=== PATIENT | male | born 2000 | race Caucasian/White ===

== ENCOUNTER 2025-04-17 15:02 | Emergency (ER) | payer MEDICAID, SELFPAY ==
[2025-04-17 15:04] VITALS: BP 159/83; PULSE 84; RESP 18; TEMP 36.8; O2SAT 99; BMI 26.2
--- NOTE | 2025-04-17 15:15 | EDS_ITS ---
HPI HPI - Psych History of Present Illness Chief Complaint: Suicidal Informant: patient Onset/Context/Timing Onset: Yesterday Context: Gradual Onset Timing: Continuous Worsened by: Situational factors Relieved by: Nothing Associated Symptoms Associated Symptoms - Psych: Positive for Depressed, Change in Eating, Change in sleeping, Decreased Interest, Hopelessness and Suicidal Thoughts; Negative for Paranoia, Visual Hallucinations or Auditory Hallucinations Specific plan (suicidal thought): Shooting self with a gun Narrative Narrative: Patient presents with depression and suicidal ideation that has been getting wor se since yesterday. Patient states it has gradually gotten worse. Patient states he got into an argument yesterday. Patient states he has had thoughts of shooting himself with a gun. Does not patient admits to some decreased interest. Patient admits to changes in eating and sleeping habits. Patient denies any visual auditory hallucinations. Patient denies any paranoid ideations. Patient currently does not see a psychiatrist or counselor. PFSH PFSH Medical History no medical history no medical history Home Medications ?Medication ?Instructions ?Recorded ?Last Taken ?Type No Known/Unobtainable [No Known 7 Unknown History Home Medications] Allergy/AdvReac Type Severity Reaction Status Date / Time No Known Allergies Allergy Verified 04/17/25 15:10 Family History no significant family his Surgical History no surgical history no surgical history Social History Smoking Status: Never smoker ROS ROS ED Constitutional Constitutional ED: Denies chills or fever(s) Eyes Eyes: Denies blurry vision or change in vision ENT ENT ED: Denies rhinorrhea or sore throat Cardiovascular Cardiovascular: Denies chest pain or palpitations Respiratory/Chest Respiratory/Chest: Denies cough or dyspnea Gastrointestinal Gastrointestinal: Denies nausea or vomiting Genitourinary Genitourinary ED: Denies dysuria or hematuria Musculoskeletal Musculoskeletal: Reports back pain; Denies neck pain Integumentary Denies abscess or rash Neurologic Neurologic: Denies headache(s) or weakness Psychiatric Psychiatric: Reports depression, suicidal ideation and suicidal thoughts Allergic/Immunologic Allergic/Immunologic ED: Denies mouth swelling or urticaria EXAM Physical Exam Const Vital Signs: 04/17/25 15:04 04/17/25 16:03 04/17/25 16:33 Temperature 98.2 F 98.3 F Temperature Source Temporal Oral Pulse Rate 84 72 72 Respiratory Rate 18 16 16 Blood Pressure 159/83 H 140/75 H Blood Pressure Mean 108 96 Pulse Ox 99 97 97 Oxygen Delivery Method Room Air Room Air Room Air Positive well nourished and well developed General Appearance ED: well developed and NAD HEENT Reports moist mucous membranes Neck supple and no JVD Resp normal respiratory effort and clear to auscultation bilaterally Cardio Rate: regular rate Rhythm: regular rhythm GI non-tender and non-distended Palpation: soft Neuro oriented x3, CN's II-XII intact bilaterally and no sensory deficits noted Amari Coma Scale: document GCS findings Spontaneous Obeys Commands Oriented 15 Sensorium / Orientation: alert Motor Exam: strength 5/5 throughout Psych cooperative Appearance: well kempt Attitude: calm and withdrawn Activity / Motor Behavior: avoids eye contact Speech: minimal and soft Mood & Affect: depressed and flat affect Thought Content: suicidality, No homicidality, No delusion(s) and No hallucination(s) MDM MDM MDM Narrative Medical decision making narrative: Medical screening labs will be obtained. CBC will be obtained to assess for leukocytosis and anemia. Basic metabolic profile will be obtained to assess for electrolyte abnormality and renal function. Serum alcohol level will be obtained to assess for alcohol intoxication. Urine drug screen will be obtained to assess for substance abuse. Lab Data Attestation: I reviewed the patient's lab results. Lab results narrative: CBC was reviewed. Hemoglobin was slightly elevated at 18.2. The remainder is within normal limits. Basic metabolic profile was reviewed and was within normal limits. Serum alcohol level was reviewed and was less than 10.1. Urine drug screen was reviewed and was negative. Labs: Laboratory Results - last 24 hr 04/17/25 04/17/25 15:21 17:15 WBC 10.8 RBC 5.44 Hgb 18.2 H* Hct 52.7 MCV 96.9 H MCH 33.5 H MCHC 34.5 RDW Std Deviation 44.1 H RDW Coeff of Nisreen 12.4 Plt Count 358 MPV 8.5 Immature Gran % (Auto) 0.400 Neut % (Auto) 74.9 H Lymph % (Auto) 16.2 L [place] % (Auto) 8.0 Eos % (Auto) 0.2 Baso % (Auto) 0.3 Absolute Neuts (auto) 8.1 H Absolute Lymphs (auto) 1.75 Nucleated RBC % 0 Sodium 137 Potassium 4.1 Chloride 101 Carbon Dioxide 22.5 Anion Gap 14 BUN 14 Creatinine 1.03 Estim Creat Clear Calc 129.89 Est GFR (MDRD) Non-Af 103 BUN/Creatinine Ratio 13.6 Glucose 91 Calcium 10.0 Urine Opiates Screen NEGATIVE U Buprenorphine Qual NEGATIVE Ur Oxycodone Screen NEGATIVE Urine Methadone Screen NEGATIVE Urine Fentanyl Screen NEGATIVE Ur Barbiturates Screen NEGATIVE Ur Phencyclidine Scrn NEGATIVE Ur Amphetamines Screen NEGATIVE U Benzodiazepines Scrn NEGATIVE Urine Cocaine Screen NEGATIVE U Cannabinoids Screen NEGATIVE Ethyl Alcohol < 10.1 Management 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 Patient is medically cleared for psychiatric placement. Patient was seen by social work faculty member. Patient is uninsured and will need to be referred to [facility]. Patient will be observed in the emergency department until he can be transferred there. [place] slip and transfer form were placed on the chart. Care of the patient will be turned over to the oncoming physician pending transfer. Discharge Plan Triage Chief Complaint: Suicidal ED Provider: Damien Edgar Dx/Rx/DC Orders Clinical Impression: Suicidal ideation, Depression, Elevated blood pressure reading without diagnosis of hypertension Prescriptions: No Action No Known Home Medications Primary Care Provider: Care Physician,No Primary Referrals: Care Physician,No Primary [Primary Care Provider, Medical] Print Language: Omani Disposition Disposition: Psychiatric Hospital or Unit Discharge Location: [facility]
[2025-04-17 15:35] LABS: Hematocrit 52.7 % (40-54); Immature Granulocytes Count 0.040 X10^3/uL (0.0-0.0); Mean Corp Hgb Conc 34.5 g/dL (32-36); Mean Corpuscular Volume 96.9 fL (80-94); Mean Platelet Vol. 8.5 fl (6.2-12.0); NRBC Flagged by Analyzer 0 % (0-5); Platelet Count 358 K/mm3 (150-450); RBC Distribution Width CV 12.4 % (11.6-14.6); RBC Distribution Width SD 44.1 fl (35.1-43.9); Red Blood Count 5.44 M/mm3 (4.6-6.2); White Blood Count 10.8 K/mm3 (4.4-11.0)
[2025-04-17 15:39] LABS: Hemoglobin 18.2 g/dL (13.0-16.5)
[2025-04-17 16:03] VITALS: PULSE 72; RESP 16; O2SAT 97
[2025-04-17 16:18] LABS: Anion Gap 14 (5-15); BUN 14 mg/dL (4-19); BUN/Creat Ratio 13.6 RATIO (10-20); Calcium,Total 10.0 mg/dL (7.6-11.0); Carbon Dioxide 22.5 mmol/L (21.0-32.0); Chloride 101 mmol/L (98-108); Estimated Creatinine Clearance 129.89 ml/min (50-250); Glucose 91 mg/dL (70-99); Potassium 4.1 mmol/L (3.3-5.1)
[2025-04-17 16:33] VITALS: BP 140/75; PULSE 72; RESP 16; TEMP 36.8; O2SAT 97
[2025-04-17 16:34] LABS: Alcohol, Blood (Medical)-Serum < 10.1 mg/dL (<=10.0)
--- OUTSIDE RECORDS SUMMARY | 2025-04-17 16:48 | XMS RPT_ITS | CCD ---
Author Organization [facility] Care Team Providers Care Direct Care Worker Name Role Phone Dimitri Canas Unavailable Unavailable TOMTRACEE LABOY Unavailable Unavailable Pendlebury, Ross S Unavailable Unavailabl e Pendlebury, Ross S Unavailable Unavailabl e Tomchak, Tracee Pizarro Unavailable Unavailable Pendlebury, Ross S Unavailable Unavailabl e Pendlebury, Ross S Unavailable Unavailabl e Tomchak, Tracee Pizarro Unavailable Unavailable Farrier, Amanda L Unavailable Unavailable Farrier, Amanda L Unavailable Unavailable Tomchak, Tracee Pizarro Unavailable Unavailable Farrier, Amanda L Unavailable Unavailable TomchakTracee Unavailable Unavailable Farrier, Amanda L Unavailable Unavailable Farrier, Amanda L Unavailable Unavailable Farrier, Amanda L Unavailable Unavailable Tomchak, Tracee Pizarro Unavailable Unavailable Farrier, Amanda L Unavailable Unavailable Tomchak, Tracee Pizarro Unavailable Unavailable Farrier, Amanda L Unavailable Unavailable Farrier, Amanda L Unavailable Unavailable Farrier, Amanda L Unavailable Unavailable Tomchak, Tracee Pizarro Unavailable Unavailable Farrier, Amanda L Unavailable Unavailable Tomchak, Tracee Pizarro Unavailable Unavailable Farrier, Amanda L Unavailable Unavailable SINGH, RACHELLE Attending Unavailable SINGH, RACHELLE Primary Care Unavailable SINGH, RACHELLE Admitting Unavailable RACHELLE WINTERS Attending Unavailable SINGH, RACHELLE Primary Care Unavailable SINGH, RACHELLE Admitting Unavailable Problems Problem Classification Problem Date Documented Da te Episodic/Chronic Other screening for suspected conditions (not mental disorders or infectious disease) (3 sources) Encounter for screening for diseases of the blood and blood-forming organs and certain disorders involving the immune mechanism; Translations: [Encounter for screening for other metabolic disorders] Onset: 09-19-2023 Episodic Results Test Name Value Interpretation Reference Range Facil ity XR Hand 3+ Views Lefton 01-08 XR Hand 3+ Views Left Exam Date/Time:01/31/2018 13:30 EDTReason for Exam:FractureReportSTUDY: XR Hand 3+ Views Left; 01/31/2018 1:30 pmINDICATION:Fracture.COM PARISON:01/17/2018ACCESSI ON NUMBER(S):[id number] CLINICIAN:Amanda TobarFINDINGS:Three views left hand are obtained. Nondisplaced fracture left 5th metacarpal neck once again noted. Volar angulation distal fracture fragment once again identifiedIMPRESSION:Suba cute nondisplaced fracture left 5th neck as noted above FINAL REPORT Dictated: 01/31/2018 3:03 pm Ryne Phillips MDigned (Electronic Signature): 01/31/2018 3:03 pmSigned by: Tyrell Phillips MD Technologist: [facility] XR Hand 3+ Views Lefton 01-07 XR Hand 3+ Views Left Exam Date/Time:01/17/2018 10:15 EDTReason for Exam:FractureReportSTUDY: XR Hand 3+ Views Left; 01/17/2018 10:15 amINDICATION:Fracture.COM PARISON:12/20/2017ACCESSI ON NUMBER(S):[id number] 5ORDERING CLINICIAN:Amanda TobarTECHNIQUE:Three views of the left hand including AP, oblique and lateral projections were obtained.FINDINGS:A mildly displaced comminuted fracture is again seen through the distal left 5th metacarpal, unchanged in alignment. There has been interval increase in extent of callus at the fracture site. No new fracture is identified. The joint spaces are well preserved throughout without significant degenerative changes.IMPRESSION:1. Distal left 5th metacarpal fracture, as above. FINAL REPORT Dictated: 01/17/2018 10:40 am Mat Sheridan MD CSigned (Electronic Signature): 01/17/2018 10:40 amSigned by: Mat Sheridan MD Technologist: [facility] XR Hand 3+ Views Lefton 12-07 XR Hand 3+ Views Left Exam Date/Time:12/20/2017 13:03 EDTReason for Exam:Pain, TraumaticReportSTUDY:XR Hand 3+ Views Left; 12/20/2017 1:03 pmINDICATION:Pain, Traumatic.COMPARISON:None . 1ORDERING CLINICIAN:Ross MckayTECHNIQUE:Three views of the left hand including AP, oblique and lateral projections were obtained.FINDINGS:A mildly common oblique fracture is seen through the distal left 5th metacarpal. There is moderate anterior displacement and angulation at the fracture site. The joint spaces are well preserved throughout without significant degenerative changes.IMPRESSION:1. Left 5th metacarpal fracture, as above. FINAL REPORT Dictated: 12/20/2017 1:14 pm Mat Sheridan MD CSigned (Electronic Signature): 12/20/2017 1:14 pmSigned by: Mat Sheridan MD Technologist: [facility] Emergency Department Summary on 01-20-2017 Emergency [facility] [address] [place], [place] [address]Zievwhvif Department Bwzaemt61/14/17 1529MR#: [id number] Acct: [id number]: RADHA HENDRICKSON Rep #: [id number]: 2000 16 From: Dimitri Canas MDPCP: TRACEE LINDO Status: PRE ER- ER Visit SummaryDate of Service: 01/20/17Chief Complaint: Right shoulder pain after removing a tire from his vehicleHistory of Present Illness: The patient is a 16 M left-handed gentleman who presents with rightshoulder pain after removing a tire from his vehicle. He localizes pain to the trapezius areaand right shoulder. He denies any paresthesia, anesthesia or motor weakness. He does complainof pain with range of motion. He did see a chiropractor. The chiropractor states becausethere is so much swelling she cannot make the diagnosis. She did manipulate him, however. Hedenies cough, shortness of breath or difficulty breathing. He denies any chest discomfort. Hehas no history of prior injury to that extremity.Physical Examination: Vital signs are normal. There is no asymmetry or swelling noted. Thereis no pain the patient over the clavicle or AC joint. He is able to abductor 90 beforeexperiencing pain. Axillary, median, radial and ulnar function intact. Biceps, brachialis andtriceps deep tendon reflexes are 1+ and symmetric. Radial pulses palpable and symmetric.There is no weakness appreciated of the rotator cuff. He had a negative drop test. Abductionpast 90 causes him discomfort. Heart is regular with a normal S1 and S2. There is no murmur,gallop or rub. Lungs are clear to auscultation with good movement of air bilaterally. Thereis no egophony. Breath sounds are symmetric.Test Results: No tests were obtained, nor were any tests indicated.Emergency Department Course and Treatment: Patient and mother told that his findings aresuggestive/consistent with impingement syndrome and strain of his trapezius muscle.Treatment Plan: Ice, rest and anti-inflammatories since there is no contraindicationDispositi on: Discharged to homeImpression:1. Impingement syndrome right shoulder2. Strain right trapezius muscleED Disposition- Plan for ED Patient:Disposition: Home or Assisted LivingChief Complaint: Upper Extremity InjuryInstructions: ED Tendinitis Rotator CuffReferrals:Hussein Lindo [Primary Care Provider] - 1 Week if not improvingAdditional Instructions:Apply ice 20-30 minutes at a time 6-8 times a day. Take 4 Advil every 8 hours for the next 5days.What to do if you have ProblemsFor any increased pain, shortness of breath, bleeding, nausea or vomiting, chest pain, or anyunexpected problems, contact your Primary Care Provider. Call [facility] ([phone])or report to the closest Emergency Room.Call 911 if necessary.01/20/17 1534 Date Dimitri Canas [facility]ign Signature (If Indicated): Date CC: TRACEE Smith [facility] Encounters Encounter Date Encounter Type Care Provider Facility Start: 09-19-2023 End: 09-19-2023 [facility] Start: 09-19-2023 Encounter for facundo l adult medical examination without abnormal findings RACHELLE WINTERS [facility] Start: 09-20-2022 End: 09-20-2022 ambulatory RACHELLE WINTERS [facility] Start: 02-28-2018 End: 03-01-2018 [facility] Start: 01-31-2018 End: 02-01-2018 [facility] Start: 01-31-2018 Patient encounter Facil [id number] Start: 01-17-2018 End: 01-18-2018 Patient encounter [facility] Tob[facility] Start: 01-17-2018 Patient encounter Facil [id number] Start: 12-27-2017 End: 12-28-2017 Patient encounter Amanda Tobar Facility:[facility] Start: 12-20-2017 End: 12-21-2017 Patient encounter Ross Mckay Facility:[facility] Start: 12-20-2017 Patient encounter Facil [id number] Start: 01-20-2017 End: 01-20-2017 Emergency department patient visit [facility] Facility:[facility] Payers Date Payer Category Payer Unknown 2000 Unknown [id number] .16.84 [id number] 1999 Unknown [id number] 2.16.84 [id number] 1999 Unknown [id number] 2.16.84 [id number] 1999 Unknown [id number] 2.16.84 [id number] 1999 Unknown [id number] 2.16.84 [id number] 1999 Unknown [id number] 2.16.84 [id number] 1999 Unknown [id number] 2.16.84 [id number] 1999 Unknown [id number] 2.16.84 [id number] 1999 Unknown [id number] 2.16.8 [id number] 1999 Unknown [id number] 2.16.84 [id number] Unknown [id number] Unknown [id number] Progress note 05-18-2021 Note Date & Type Note Facility 05-18-2021 Note HNO ID: [id number] Author: Darsahna Johnson OD Service: ? Author Type: BEEF SELECTOR Type: Progress Notes Filed: 05/18/2021 10:38 AM Note Text: ASSESSMENT/PLAN: 1. Floaters, bilateral - ICD9: 379.24, ICD10: H43.393 (primary diagnosis) Vitreal floaters stable both eyes. Retinas flat and intact with no apparent retinal tear or traction. Discussed symptoms of retinal tear/detachment and if seen patient will return to clinic without delay. 2. Myopia, right - ICD9: 367.1, ICD10: H52.11 3. Regular astigmatism of left eye - ICD9: 367.21, ICD10: H52.222 Glasses are an option if he feels they are necessary. Recommended yearly exams. Darshana Johnson OD [facility] Summary Purpose Family History No Family History Records FoundNo Family History Records FoundNo Family History Records FoundNo Family History Records FoundNo Family History Records Found Advance Directives No Advanced Directives Records FoundNo Advanced Directives Records FoundNo Advanced Directives Records FoundNo Advanced Directives Records FoundNo Advanced Directives Records Found Additional Source Comments (unrecognized sect ion and content) No Status Records FoundNo Status Records FoundNo Status Records FoundNo Status Records FoundNo Status Records Found INFORMATION SOURCE (unrecogn ized section and content) DATE CREATED AUTHOR 11/04/2017 [facility] DATE CREATED AUTHOR AUTHOR'S ORGANIZ ATION 03/04/2018 [facility] DATE CREATED AUTHOR AUTHOR'S ORGANIZ ATION 03/29/2018 [facility] DATE CREATED AUTHOR AUTHOR'S ORGANIZ ATION 05/18/2021 [facility] DATE CREATED AUTHOR AUTHOR'S ORGANIZ ATION 09/21/2023 [facility] FOR RECORDS PERTAINING TO PATIENTS WHO ARE OR HAVE BEEN ENROLLED IN A CHEMICAL DEPENDENCY/SUBSTANCEABUSE PROGRAM, SOME INFORMATION MAY BE OMITTED. This clinical summary was aggregated from multiple sources. Caution should be exercised in using it in the provision of clinical care. This summary normalizes information from multiple sources, and as a consequence, information in this document may materially change the coding, format and clinical context of patient data. In addition, data may be omitted in some cases. CLINICAL DECISIONS SHOULD BE BASED ON THE PRIMARY CLINICAL RECORDS. [employer] provides no warranty or guarantee of the accuracy or completeness of information in this document.
--- NOTE | 2025-04-17 17:33 | CM.ED ---
Social Work Psychiatric Assessment Reason for consult: ?Mental health Informant(s): ?patient, medical record, patients mom Chief Complaint: Patient was brought to ED by [place] police after patient went to police station and asked for help due to suicidal ideations.?? Patient states that he had a gun in his car and he was planning on killing himself with it.? When asked about stressors or recent events that escalated patients suicidal ideations, patient stated ?I just don?t want to be here anymore? and is experiencing feeling numb.? Patient presented with an incredibly flat and despondent affect.? Would seldom make eye contact, could not express self or elaborate on answers when asked a question.? When the question was a personal question, patient would often not be able to answer as it appeared he was trying to stop self from crying.? Patient did remain tearful during interview, expressed feelings of being ?stuck? in life and feeling hopeless.? Patient states he, himself, is the reason he feels suicidal but would not elaborate on that feeling.? Patient did deny any relationship or family stressors but did express frustration with being unable to talk about his feelings.?? Patient states he has had suicidal thoughts on and off since he was [age] years old, that he has never shared those thoughts with anyone.? Patient gave permission for SW to contact his mother, but stated she would be ?blindsided? by the reason he was admitted.? Patient told SW that he had a cousin who successfully completed suicide 1-2 years ago and patients mother shared that she attempted suicide 20 years ago and was hospitalized.? Patient denies any homicidal ideations, any delusional thoughts, denies A/V hallucinations.? Patient also denies any sleep or appetite disturbance.?? Marital/Social History: patient is a single 25 year old male Living Situation: ?patient lives with his mom and dad, patient states they have a healthy relationship. Support/Resources: ?patient unable to identify any supports History: None Education and Employment History: ?patient graduated high school.? 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 Mom states that it was very stressful for patient and dad to be working together, that it did not go well. Mental Health Treatment/History: ?patient denies any mental health treatment, diagnosis, or medications.? Patient reports he has never shared his feelings about being suicidal.? Triggers/Stressors to mental health: ?patient is unable to state a stressor or trigger?? Coping Skills: ??patient states his coping skills were using his computer but he broke it and now he has nothing else that helps History of Abuse (physical/sexual/verbal/emotional): ?denies Substance Abuse Current/Historical: denies Risk to Self/Others: ? Suicidal (thought/plan/intent/attempt): ?patient reports to suicidal ideations with plan and intent ? Access to Lethal Means: ?yes, patient had access to gun ? Homicidal (thought/plan/intent/attempt): denies ? History of Violence (self/others/objects): denies Mental Status Exam: ??? Orientation: ?patient is alert and oriented ??? Memory: ?intact Appearance/General Behavior: ?patient is clean, calm, despondent Mood/Affect: ?depressed, constricted Communication Pattern: ?patient had difficult time elaborating on answers, would answer with short one word answers or would avoid the question if it caused patient to become tearful Thought Process: appropriate for situation? General Intellectual Functioning: ?average Judgment: ?fair Insight: fair Plan: ?Due to patients suicidal ideation with plan, intent and opportunity, ?patient having no mental health support or services nor can identify any support system, inpatient psychiatric hospitalization is recommended. ?Physician consulted and in agreement with same. Samantha Rodriguez, SOLID PROPELLANT PROCESSOR, CISSP
[2025-04-17 18:10] LABS: Barbiturate Urine NEGATIVE (< 200 ng/mL); Benzodiazepine Urine NEGATIVE (< 200 ng/mL); PCP Urine NEGATIVE (< 25 ng/mL); THC Urine NEGATIVE (< 50 ng/mL)
--- NOTE | 2025-04-17 18:13 | CM.ED ---
Social Work SW was notified by patient at end of assessment that his insurance was no longer active. Patient states he thinks it may have been a year since he had let it lapse. Katy from [facility] [employer] was notified and came to ED to meet with patient. Patient agreed for Katy to file Medicaid application on his behalf, same completed. Patient notified that due to no insurance at this time, he will likely be in the ED at least overnight, that we only have one hospital to refer to and that they typically have a waiting list. Patient gave permission for MENDOZA to also update patients mother. SW contacted patients mom and explained that patient was on a wait list for [facility] and that [facility] had completed medicaid application and that patient would be in ED at least overnight. Patient is requesting that mom not be allowed to visit at this time. Mom notified that patient requested she not come to ED. No further questions or concerns from patient or mom at this time. Samantha Rodriguez, MANAGING EDITOR, LEGAL SERVICE SPECIALIST
[2025-04-18 00:30] VITALS: BP 119/67; PULSE 80; RESP 16; TEMP 36.8; O2SAT 96
--- NOTE | 2025-04-18 03:53 | EKG12_ITS ---
Test Reason : MHC Blood Pressure : */* mmHG Vent. Rate : 65 BPM Atrial Rate : 65 BPM P-R Int : 198 ms QRS Dur : 92 ms QT Int : 394 ms P-R-T Axes : 40 26 7 degrees QTcB Int : 409 ms Normal sinus rhythm Normal ECG Confirmed by SHANNAN OLEA, MAIN ([id number]), rewrite editor CHERYL LUONG ([id number]) on 04/22/2025 6:25:17 AM Referred By: Confirmed By: MAIN CAMPBELL MD
[2025-04-18 08:00] VITALS: BP 129/82; PULSE 90; RESP 14; O2SAT 99
--- NOTE | 2025-04-18 13:03 | PCA ---
THIS ULTRASOUND TECH CALLED [facility] TO GET AN UPDATE ON PT. PT IS STILL PENDING [facility] OF NOW. [facility] RECEIVED EKG AND TOX AND THEY ARE REVIEWING. [facility] WILL NOT HAVE A BED TODAY. EDIE (OUR SW) IS IN COMMUNICATION WITH [facility] ABOUT TRYING TO GET PT MEDICARE INSURANCE. NO UPDATE OF NOW WITH INSURANCE.
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
--- NOTE | 2025-04-18 14:53 | CM.ED ---
Social work Received call from Katy with [facility] (ext [phone]) stating patient's Medicaid application had still been received, but not started yet. Katy stated hopefully having a better answer tomorrow. Called Crisis (ph: [phone]) and spoke with [place]. Provided above update and asked who was completing patient's 24 hour re-assessment, whether this SW or a Crisis therapist. [place] stated ability to call SW back around 1700 to determine this answer for sure. Rosette Juarez, NEW AUTOS DELIVERY DRIVER, APPLE PRESS OPERATOR
[2025-04-18 16:00] VITALS: BP 128/71; PULSE 72; RESP 18; O2SAT 97
--- NOTE | 2025-04-18 17:33 | CM.ED ---
Social work 1699: Jeramy from Crisis called and stated Jeramy would be presenting to [facility] ED soon to complete 24 hour reassessment for patient. 1814: Jeramy and MENDOZA called patient's mother, Disha, (ph: [phone]) together due to Jeramy needing to share updates following the 24 hour reassessment. MENDOZA was present as Jeramy updated Disha on the need to still place patient at an inpatient psychiatric facility. Disha expressed understanding and Jeramy stated patient's request for Disha to bring in patient's phone for reading purposes. Disha stated ability to do so tomorrow after work. Jeramy stated patient being agreeable to seeing Disha due to asking Disha for a favor. When Jeramy left the office, MENDOZA answered Disha's questions and provided direct ED SW number as well as Crisis number for contacting. MENDOZA reminded Disha of need to care for self during this stressful situation and of ability to call either of the numbers provided with any questions Disha or other family members had. No further questions at this time. Plan: Crisis still looking at inpatient. [place] unless Medicaid approves tomorrow, 04/18 MENDOZA to send email handoff to Samantha JONES. HOMA Post, CREDIT RELATIONSHIP MANAGER
[2025-04-19 00:45] VITALS: BP 122/62; PULSE 71; RESP 10; O2SAT 64
--- NOTE | 2025-04-19 08:57 | PCA ---
THIS LENS MOUNTER RECEIVED A CALL FROM CRISIS ABOUT PT STATUS AT [facility]. [facility] HAS NO DISCHARGES TODAY AND WILL NOT HAVE A BED ALL WEEKEND EITHER. PT MEDICAID INSURANW
--- NOTE | 2025-04-19 09:01 | PCA ---
THIS BLOW MOULDING MACHINE OPERATOR RECEIVED A CALL FROM CRISIS WITH AN UPDATE ON PT'S STATUS AT [facility]. [facility] DOESN'T HAVE A BED TODAY AND WON'T ON THE WEEKEND EITHER. OTHER OPTION SW IS WORKING ON IS FUNDING FROM TRYING TO REINSTATE MEDICAID INSURANCE.
[2025-04-19 11:00] VITALS: BP 130/73; PULSE 64; RESP 16; TEMP 36.6; O2SAT 99
--- NOTE | 2025-04-19 13:15 | CM.ED ---
Social Work 10:00 Received a call from Kyler at [facility] stating [place] has no anticipated discharges today and will not be able to take patient over the weekend. MENDOZA asked about funding from [facility], Kyler stated he would speak to Haleigh at [facility] about same. MENDOZA called Katy from [facility] who stated patients Medicaid application had not yet been opened so uncertain when patient will be approved. 11:00 Haleigh from [facility] called to let MENDOZA know that there is no additional funds available through [facility] but that she would attempt alternate placement at a [facility] unit. MENDOZA and and Haleigh also reviewed patients address again and determined he is an [facility] resident. Haleigh stated she would call to see if [facility] has any funds for hospitalization. 1:00 Haleigh called to say that [place] did have funds available, patient was referred and accepted at [facility]. Accepting physician is Dr. Corrales, patient will be going to [facility]. [id number] [phone]. [place] slip faxed to [facility]. Patient notified of accepting hospital and transport time. Patients mother also updated on patient being accepted to [facility] and transport time. Mom states she will be in to see patient this afternoon, patient aware. No further needs at this time. Samantha Rodriguez, HOME SERVICE ADVISOR, SIGNING TEACHER
--- NOTE | 2025-04-19 15:38 | ED.RN ---
Report called to Sorin Panchal
[2025-04-19 15:43] VITALS: BP 138/89; PULSE 81; RESP 15; TEMP 36.8; O2SAT 97
--- NOTE | 2025-04-19 16:24 | PCA ---
THIS DRAIN TILER CALLED PHYSIC[facility]ANS AT 1420 ASKING FOR AN UPDATED ETA BECAUSE CREW IS 20 MINUTES LATE ON ARRIVAL. OMAYRA WITH [facility]YSIC[facility]ANS DOUBLE CHECKED AND SAID THAT THE CREW WON'T ARRIVE UNTIL 1800. THIS DRAIN TILER ASKED WHY THERE WAS A DELAY. OMAYRA STATED SHE COULDN'T GIVE OUT THAT INFORMATION. THIS DRAIN TILER REQUESTED SHE CONNECT ME WITH SOMEONE WHO CAN BECAUSE BEFORE, I SPOKE TO CHIARA AT 1430 AND HE GAVE THE ETA OF 1600 WHEN ORIGINALLY THE ETA WAS 1700. AND NOW THE CREW IS AT 1800. OMAYRA REFUSED TO CONNECT ME WITH ANOTHER PERSON AND TALKED OVER ME SAYING THAT THERE HAS BEEN A [facility]IGH CALL [facility] AND THEY ASSIGN BASED ON MOST CRITICAL. THEN THIS DRAIN TILER AGAIN REMINDED THAT WE DIDN'T GET AN UPDATE AND WE NEED TO BE UPDATED ON DELAYED ETA'S. OMAYRA AGAIN TALKED OVER ME STATING THAT WITH THE [facility] THEY FIND DIFFICULTY TO TAKE THE TIME TO CALL AND UPDATE FACILITIES WITH ETA'S.
--- NOTE | 2025-04-19 16:25 | ED.RN ---
Patient provided with meal tray
[2025-04-19 19:00] VITALS: RESP 16; TEMP 36.8
--- NOTE | 2025-04-24 21:47 | CM.ED ---
Social Work SW received a phone call from patients mom stating that patient was being released from his inpatient psychiatric stay tomorrow and mom wanted information on IOP/PHP programming. SW gave mom phone number and information related to [facility] and PHP program. All questions answered as able. Samantha Rodriguez, PARKING CASHIER, HIGH SCHOOL HOME ECONOMICS TEACHER
== END 2025-04-19 19:20 ==
PROVIDERS: Emergency Provider Emergency Medicine; Visit Provider Emergency Medicine
DX: R45.851 Suicidal ideations (principal); F32.A Depression, unspecified; R03.0 Elevated blood-pressure reading, without diagnosis of hypertension
CPT/HCPCS: 36415; 80048; 80307; 82077; 85025; 93005; 99284